=== PATIENT | male | born 1980 | race Two or more races ===

== ENCOUNTER 2021-07-21 14:09 | Outpatient (AMB) | payer OTHER, SELFPAY ==
[2021-07-21 14:46] VITALS: BP 118/75; PULSE 95; RESP 20; TEMP 36.6; BMI 21.3
--- NOTE | 2021-07-21 14:46 | U.OPVIS1 ---
Intake Vital Signs 07/21/21 14:46 Height 1.73 m Weight 63.673 kg BMI 21.3 BP 118/75 Blood Pressure Location Left Upper Arm Position Sitting Respiration 20 Pulse 95 Pulse Source Monitor Temp 97.8 F Temp Source Temporal Artery Scan Intake Visit Reasons: Uro Prostate Ultrasound/covid given to pt Community Education Specialist Required: No Is patient in pain?: No Allergy Allergies ciprofloxacin Allergy (Mild, Verified 07/21/21 14:48) unknown tetracycline Allergy (Unknown, Verified 07/21/21 14:48) Home Meds Medication Reconciliation ibuprofen 600 mg tablet 600 mg PO Q6HR PRN #40 tab 11/15/16 [Rx Confirmed 07/21/21] ipratropium bromide 21 mcg (0.03 %) nasal spray 2 spray INTRANASAL BID #30 ml 08/17/19 [Rx Confirmed 07/21/21] pseudoephedrine HCl 120 mg tablet,extended release (Sudafed 12 Hour) 120 mg PO Q12H PRN #14 tab 08/17/19 [Rx Confirmed 07/21/21] carbamazepine 200 mg tablet (Tegretol) 200 mg PO BID 07/15/21 [History Confirmed 07/21/21] cetirizine 10 mg tablet (Zyrtec) 10 mg PO QDAY PRN 07/15/21 [History Confirmed 07/21/21] montelukast 10 mg tablet 10 mg PO QDAY 07/15/21 [History Confirmed 07/21/21] Office Procedures Uro Prostate US My Supervising Practitioner for this visit is:: Kailash Fernandez Prostate US: Yes Informed consent given: Yes Consent signed: Yes Time out staff in room: Yes IMMEDIATELY PRIOR TO START OF PROCEDURE: ALL MEMBERS of the procedural team are in attendance and actively involved together in the TIME-OUT and verified as applies to the patient:: Correct Patient Identity, Correct Site, Consent Signed and Accurate, Team Agrees on Procedure, Patient has completed pre-procedure preparations, Fleet Enema, Antibiotic prophylaxis, Review of allergies and potential blood loss, Safety Precautions are in place based on patient history, Correct Patient Positioning, Procedural site marked by appropriate provider, Procedural site marking is visible after prep and draping, Relevant images and results are properly labeled and displayed, Reqd blood products, implants, devices and necessary equip available and Specimen container(s) and lab req(s) are available & labeled properly. Time out verified: Yes Time out date: 07/21/21 Time out time: 15:06 Uro Level of Care Nursing/Assessment/Reassessment Patient Status: Established Patient Nursing Assessment/Reassessment: Update REPLACED BY [facility] data in EMR, Vital Signs and Medication Reconciliation Coordination of Care: Comp Pt/Fam Ed for care and Consent,records obtained Miscellaneous Interventions: Phys Asssit w/procedure Established Patient Point Assignment: 80 Procedure IM Injection: No Transrectal Ultrasound: Yes Urology Prostate Ultrasound PSA Density (ng/cc):: 0.33 Prostate Height (mm):: 2.63 Prostate Width (mm):: 4.88 Prostate Length (mm):: 3.81 Prostate volume (cc):: 25.65 Hypoechogenic areas exist which could represent areas of malignancy: No Hyperdense schos are seen suggestive of calculi in the capsule: Yes Seminal vesicles:: Normal Prostate median lobe:: Absent Bladder exam:: Abnormal (Large residual urine) Documentation images were taken: Yes Visit Diagnosis: BPH with urinary obstruction and LUTS start on tamsulosin 0.4 mg p.o. daily side effects are explained to patient thank you follow-up appointment in 3
[2021-07-21 15:40] LABS: Bilirubin,Urine Clinitek Negative (Negative); Blood,Urine Clinitek Trace-intact (Negative); Glucose, Urine Clinitek Negative (Negative); Ketones,Urine Clinitek Negative (Negative); Leukocyte Esterase,Urine Clin Negative (Negative); Nitrite,Urine Clinitek Negative (Negative); PH,Urine Clinitek 6.5 (5.0-7.0); Protein,Urine Clinitek Negative (Neg - Trace); Specific Gravity,Urine Clin 1.015 (1.001-1.030); Urobilinogen,Urine Clinitek 0.2 mg/dL (0.0-1.0)
== END 2021-07-21 15:43 | disposition home or self-care (01) ==
LOC: HODURO 14:09
PROVIDERS: PCP Family Medicine; Visit Provider Urology

== ENCOUNTER → 2024-05-01 | Outpatient (CLI) | payer BC, SELFPAY ==
[2024-05-01 17:40] LABS: Collection Type, Urine Clean Catch; Squamous Epithelial Cell,Urine 0 /hpf (0-5)
[2024-05-01 17:54] LABS: Basophils # (Auto) 0.1 Thou/mm3 (0.0-0.2); Basophils % (Auto) 1 % (0-2.5); Eosinophils # (Auto) 0.1 Thou/mm3 (0.0-0.5); Eosinophils % (Auto) 1 % (0-10); Hemoglobin 13.6 g/dL (13.5-16.0); Immature Granulocytes % (Auto) 0 % (0-0); Immature Granulocytes Auto 0.02 Thou/mm3 (0.00-0.00); Lymphocytes # (Auto) 1.5 Thou/mm3 (1.0-4.8); Lymphocytes % (Auto) 19 % (10-50); Mean Corpuscular Hemoglobin 31.1 pg (25.0-35.0); Mean Corpuscular Volume 92 fL (80-100); Monocytes # (Auto) 0.6 Thou/mm3 (0.0-0.8); Monocytes % (Auto) 8 % (0-12); Neutrophils # (Auto) 5.4 Thou/mm3 (1.8-7.7); Neutrophils % (Auto) 71 % (37-80); Nucleated Red Blood Cell % 0 /100 WBC (0); Platelet Count 298 Thou/mm3 (140-440); RDW Standard Deviation 40.4 fL (35.1-43.9); Red Blood Count 4.37 Miln/mm3 (4.50-5.90); White Blood Count 7.7 Thou/mm3 (3.8-10.6)
[2024-05-01 17:55] LABS: Bilirubin,Urine Negative (Negative); Blood,Urine Negative (Negative); Clarity,Urine Clear (Clear/Hazy); Color,Urine Colorless (Lt Yel-Yel); Glucose, Urine Negative (Negative); Ketones,Urine Negative (Negative); Leukocyte Esterase,Urine Negative (Negative); Nitrite,Urine Negative (Negative); Protein,Urine Negative (Neg - Trace); RBC,Urine 2 /hpf (0-3); Specific Gravity,Urine 1.014 (1.001-1.035); Urobilinogen,Urine Negative mg/dL (0.0-1.0); WBC,Urine < 1 /hpf (0-5)
[2024-05-01 18:06] LABS: Prostate Specific Antigen 0.47 ng/mL (0-4.00)
[2024-05-01 18:15] LABS: Alanine Aminotransferase 22 U/L (10-49); Albumin, Serum 4.9 gm/dL (3.5-5.0); Albumin/Globulin Ratio 2.3 (1.2-2.2); Alkaline Phosphatase 117 U/L (46-116); Anion Gap 4 (7-16); Aspartate Amino Transferase < 8 U/L (0-34); BUN/Creatinine Ratio 14 Ratio (12-20); Bilirubin,Total 0.3 mg/dL (0.3-1.2); Blood Urea Nitrogen 13 mg/dL (9-23); Carbon Dioxide 28.3 mMol/L (20.0-31.0); Chloride 101 mMol/L (98-107); Creatinine (Component) 0.9 mg/dL (0.6-1.3); Globulin 2.1 gm/dL (2.3-3.5); Glucose 91 mg/dL (74-106); Osmolality,Calculated 266 (275-295); Potassium 4.5 mMol/L (3.4-5.1); Sodium 133 mMol/L (136-145); eGFR > 60 See Note
== END | disposition home or self-care (01) ==
LOC: COPL 16:28
PROVIDERS: PCP Family Medicine; Referring Provider Urology; Visit Provider Urology
DX: T07.XXXA Unspecified multiple injuries, initial encounter (principal); M54.2 Cervicalgia; M54.50 Low back pain, unspecified; M54.9 Dorsalgia, unspecified; N40.1 Benign prostatic hyperplasia with lower urinary tract symptoms; X58.XXXA Exposure to other specified factors, initial encounter
CPT/HCPCS: 36415; 80053; 81001; 84153; 85025

== ENCOUNTER → 2024-05-15 | Outpatient (BNVA) | payer BC, SELFPAY | END | disposition home or self-care (01) | PROVIDERS: PCP Family Medicine; Referring Provider Family Medicine; Visit Provider Urology | DX: N40.1 Benign prostatic hyperplasia with lower urinary tract symptoms (principal); N13.8 Other obstructive and reflux uropathy; I86.1 Scrotal varices; F17.210 Nicotine dependence, cigarettes, uncomplicated | CPT/HCPCS: 99212; G0463 ==

== ENCOUNTER 2024-06-27 11:02 | Outpatient (RCR) | payer BC, SELFPAY ==
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
== END 2024-07-20 23:59 | disposition home or self-care (01) ==
LOC: CPTX 11:02
PROVIDERS: PCP Family Medicine; Referring Provider Family Medicine; Visit Provider Family Medicine
DX: M25.512 Pain in left shoulder (principal); S49.92XD Unspecified injury of left shoulder and upper arm, subsequent encounter; V89.2XXD Person injured in unspecified motor-vehicle accident, traffic, subsequent encounter; Z71.6 Tobacco abuse counseling; F17.210 Nicotine dependence, cigarettes, uncomplicated
CPT/HCPCS: 97162

== ENCOUNTER 2025-02-15 14:27 | Outpatient (RCR) | payer BC, SELFPAY ==
--- NOTE | 2025-02-15 15:17 | PTNOTE_ITS ---
PT OP Initial Eval Patient Information Outpatient Physical Therapy Treatment Date: 02/15/25 Visit Reasons: Left shoulder impingement syndrome Medical Diagnosis: s43.432a Treatment Dx #1: Left Shoulder Pain Start of Care: 02/15/25 Smoking Status Smoking Status: Never smoker Initial Assessment Subjective: Pt is a 45 y/o male reports of chronic left shoulder pain (5/10) with popping since Jun 2024. Pt received a cortisone shot last month which helped the pain. Pt mentioned most recent MRI showed type II labrum tear. Pt has limitation with overhead motions, lifting, chores, self care, recreational activities, work duties, and performing ADLs. Objective: Left Shoulder AROM: all motions are WFL with end range pain into external rotation Left Shoulder MMTs: grossly 4-/5 Left Scapula MMTs: grossly 3+/5 Special Test (+) osvaldo (+) active gorman's Assessment: Pt demonstrate left shoulder pain consistent with MRI findings leading to difficulty with ADLs. Pt will benefit from physical therapy to increase ROM, strength, and work on stability. Short Term and Loss Prevention Supervisor Goals 1) Increase left shoulder AROM WNL in 4 wks to be able to perform overhead motions 2) Decrease shoulder pain to 2/10 in 4 wks to be able to perform chores 3) Increase left shoulder MMTs grossly to 4/5 in 4 wks to be able to perform recreational activities 4) Increase left scapula MMTs grossly to 4-/5 in 4 wks to be able to perform work duties 5) Indep with HEP Treatment Plan 1) Manual Therapy 2) Therapeutic Activities 3) Therapeutic Exercises 4) Modalities (ice, heat) Frequency and Duration: 2 x wk for 4 wks Certification Dates: 02/15/25 to 05/18/25 Procedure Charges OP PT Eval Mod Complex 30 minutes: Yes
== END 2025-02-17 23:59 | disposition home or self-care (01) ==
LOC: CPTX 14:27
PROVIDERS: PCP Family Medicine; Referring Provider Orthopaedic Surgery; Visit Provider Orthopaedic Surgery
DX: M25.512 Pain in left shoulder (principal); G89.29 Other chronic pain; S43.432D Superior glenoid labrum lesion of left shoulder, subsequent encounter; X58.XXXD Exposure to other specified factors, subsequent encounter
CPT/HCPCS: 97162

== ENCOUNTER 2025-03-14 15:30 | Outpatient (RCR) | payer BC, SELFPAY ==
--- NOTE | 2025-02-25 16:08 | PT.ODAYNRPT ---
PT Outpatient Daily Note OP Daily Note Outpatient Physical Therapy Treatment Date: 02/25/25 Visit Reasons: left shoulder impingement syndrome Subjective: Pt reports L shoulder is doing ok today, has pain with certain movement and can not lift heavy objects. Objective: Please see flow sheet for ther ex list. Assessment: Pt instructed on AAROM and light isometrics exercises. Verbal cues and demonstration to avoid trunk flexion with isometric exercises. Plan: Continue with poC. Length of Time (minutes) of Treatment: 30 Minutes Procedure Charges Therapeutic Exercise 30 minutes: Yes
--- NOTE | 2025-03-01 16:17 | PT.ODAYNRPT ---
PT Outpatient Daily Note OP Daily Note Outpatient Physical Therapy Treatment Date: 03/01/25 Visit Reasons: left shoulder impingement syndrome Subjective: Pt reports he is trying to use his L shoulder more within pain tolerance. Objective: Please see flow sheet for ther ex list. Assessment: Verbal cues to avoid trunk movement with isometric exercises, pt complied. Plan: Continue with poC. Length of Time (minutes) of Treatment: 30 Minutes Procedure Charges Therapeutic Exercise 30 minutes: Yes
--- NOTE | 2025-03-06 16:22 | PT.ODAYNRPT ---
PT Outpatient Daily Note OP Daily Note Outpatient Physical Therapy Treatment Date: 03/06/25 Visit Reasons: left shoulder impingement syndrome Subjective: Pt reports L shoulder was sore after last session, muscle fatigue present but no pain. Objective: Please see flow sheet for ther ex list. Assessment: Verbal cues to avoid upper trap recruitment during isometric walkout exercises. Plan: Continue with poC. Length of Time (minutes) of Treatment: 30 Minutes Procedure Charges Therapeutic Exercise 30 minutes: Yes
--- NOTE | 2025-03-11 16:39 | PT.ODAYNRPT ---
PT Outpatient Daily Note OP Daily Note Outpatient Physical Therapy Treatment Date: 03/11/25 Visit Reasons: left shoulder impingement syndrome Subjective: Pt reported minimal soreness post last visit. Objective: Please see flow sheet for ther ex list. Assessment: Performed L scapula release, pt tolerated well and reported decrease pain of the scapular border. Plan: Continue with pOC. Length of Time (minutes) of Treatment: 30 Minutes Procedure Charges Therapeutic Exercise 30 minutes: Yes
--- NOTE | 2025-03-14 15:55 | PT.ODAYNRPT ---
PT Outpatient Daily Note OP Daily Note Outpatient Physical Therapy Treatment Date: 03/14/25 Visit Reasons: left shoulder impingement syndrome Subjective: Pt's shoulder is better, however, is concern about his pec and sternum. Pt continues to have pain in the area especially when he lays on the left side. Pt has a follow up appt with surgeon next week. Objective: Please see flow chart for list of ther ex performed Assessment: progressing with shoulder AROM, however, reports of new pain in the pec and sternum region. Pt advised to follow up with PCP for further screening. Pt gave verbal understanding Plan: Continue with PT Length of Time (minutes) of Treatment: 30 Minutes Procedure Charges Therapeutic Exercise 30 minutes: Yes
== END 2025-03-19 23:59 | disposition home or self-care (01) ==
LOC: CPTX 15:30
PROVIDERS: PCP Orthopaedic Surgery; Referring Provider Orthopaedic Surgery; Visit Provider Orthopaedic Surgery
DX: M25.512 Pain in left shoulder (principal); S43.432D Superior glenoid labrum lesion of left shoulder, subsequent encounter; X58.XXXD Exposure to other specified factors, subsequent encounter
CPT/HCPCS: 97110

== ENCOUNTER 2025-04-19 15:30 | Outpatient (RCR) | payer BC, SELFPAY ==
--- NOTE | 2025-03-22 16:01 | PT.ODAYNRPT ---
PT Outpatient Daily Note OP Daily Note Outpatient Physical Therapy Treatment Date: 03/22/25 Visit Reasons: left shoulder impingement syndrome Subjective: Pt's shoulder continues to have pain in the area it's torn. Pt seen surgeon and recommends more PT. Pt does not have a follow up appt with surgeon. Objective: Please see flow chart for list of ther ex perfomed Assessment: progressing patient to more stability and strengthening exercises. Pt fatigue post PT session Plan: Continue with PT Length of Time (minutes) of Treatment: 30 Minutes Procedure Charges Therapeutic Exercise 30 minutes: Yes
--- NOTE | 2025-03-29 15:54 | PT.ODAYNRPT ---
PT Outpatient Daily Note OP Daily Note Outpatient Physical Therapy Treatment Date: 03/29/25 Visit Reasons: left shoulder impingement syndrome Subjective: Pt reports shoulder has been more sore and achy, has been in and out of file cabinets at work all week. Objective: Please see flow sheet for ther ex list. Assessment: Pt had some discomfort with serratus scap clock exercise, resolved post exercise. Plan: Continue with poC. Length of Time (minutes) of Treatment: 30 Minutes Procedure Charges Therapeutic Exercise 30 minutes: Yes
--- NOTE | 2025-04-05 16:12 | PT.ODAYNRPT ---
PT Outpatient Daily Note OP Daily Note Outpatient Physical Therapy Treatment Date: 04/05/25 Visit Reasons: left shoulder impingement syndrome Subjective: Pt reports shoulder has been feeling better, notices less pain. Objective: Please see flow sheet for ther ex list. Assessment: Pt progressing indicated by no pain with thera band interventions. Plan: Continue with pOC. Length of Time (minutes) of Treatment: 30 Minutes Procedure Charges Therapeutic Exercise 30 minutes: Yes
--- NOTE | 2025-04-08 16:01 | PT.ODAYNRPT ---
PT Outpatient Daily Note OP Daily Note Outpatient Physical Therapy Treatment Date: 04/08/25 Visit Reasons: left shoulder impingement syndrome Subjective: Pt's left shoulder pain less intense. Pt mentioned he continues to have sleeping on the left side. 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 Objective: Please see flow chart for list of ther ex performed Assessment: adding more scapula stabilization exercises with good tolerance. Cues to decrease body blade oscillation to improve form. Plan: Continue with PT Length of Time (minutes) of Treatment: 30 Minutes Procedure Charges Therapeutic Exercise 30 minutes: Yes
--- NOTE | 2025-04-12 15:55 | PT.ODS1RPT ---
PT OP Progress/Discharge Note Date of Service: 04/12/25 Progress Note/DC Note Progress Note/Discharge Note: Progress Note Patient Information Visit Reasons: left shoulder impingement syndrome Medical Diagnosis: s43.432a Treatment Dx #1: Left Shoulder Pain Service Continue Service or Discharge: Continue Service Certification Date Certification Dates: 04/05/25 to 07/06/25 Status Subjective: Pt's shoulder feels better, however, still has intermittent pain with certain arm movement. Pt can perform chores, cooking, cleaning, and self care with less pain. Pt still has limitation with lifting, work duties, and recreational activities. Pt does not have to see MD and was given a new MD order for additional PT session. Objective: Left Shoulder AROM: all motions are WNL with pain towards external rotation end range Left Shoulder MMTs: grossly 4-/5 Left Scapula MMTs: grossly 3+/5 Assessment: Pt is progressing with shoulder mobility and stability, however, continue to experience intermittent shoulder pain leading limitation with certain ADLs. Pt will continue to benefit from physical therapy to increase strength, mobility, and stability to beable to resume ADLs; thank you for your referrals Plan: Continue PT/POC per MD's new order 2 x wk for 8 wks Procedure Charges Therapeutic Exercise 30 minutes: Yes
--- NOTE | 2025-04-19 15:54 | PT.ODAYNRPT ---
PT Outpatient Daily Note OP Daily Note Outpatient Physical Therapy Treatment Date: 04/19/25 Visit Reasons: left shoulder impingement syndrome Subjective: Pt reports L shoulder has been feeling better lately. Objective: Please see flow sheet for ther ex list. Assessment: Progression of interventions completed with muscle fatigue but no pain to report. Plan: Continue with pOC. Length of Time (minutes) of Treatment: 30 Minutes Procedure Charges Therapeutic Exercise 30 minutes: Yes
== END 2025-04-19 23:59 | disposition home or self-care (01) ==
LOC: CPTX 15:30
PROVIDERS: PCP Orthopaedic Surgery; Referring Provider Orthopaedic Surgery; Visit Provider Orthopaedic Surgery
DX: M25.512 Pain in left shoulder (principal); G89.29 Other chronic pain; S43.432D Superior glenoid labrum lesion of left shoulder, subsequent encounter; X58.XXXD Exposure to other specified factors, subsequent encounter
CPT/HCPCS: 97110

== ENCOUNTER 2025-05-13 15:30 | Outpatient (RCR) | payer BC, SELFPAY ==
--- NOTE | 2025-04-22 16:13 | PT.ODAYNRPT ---
PT Outpatient Daily Note OP Daily Note Outpatient Physical Therapy Treatment Date: 04/22/25 Visit Reasons: LEFT SHOULDER IMPINGEMENT SYNDROME Subjective: Pt reports progress with L shoulder. Objective: Please see flow sheet for ther ex list. Assessment: Continued focus on restoring functional strength within pt tolerance. Plan: Continue with pOC. Length of Time (minutes) of Treatment: 30 Minutes Procedure Charges Therapeutic Exercise 30 minutes: Yes
--- NOTE | 2025-04-26 16:02 | PT.ODAYNRPT ---
PT Outpatient Daily Note OP Daily Note Outpatient Physical Therapy Treatment Date: 04/26/25 Visit Reasons: LEFT SHOULDER IMPINGEMENT SYNDROME Subjective: Pt reports L shoulder is doing better. Objective: Please see flow sheet for ther ex list. Assessment: Progression of interventions tolerated with muscle fatigue but no pain. Plan: Continue with pOC. Progress as tolerated. Length of Time (minutes) of Treatment: 30 Minutes Procedure Charges Therapeutic Exercise 30 minutes: Yes
--- NOTE | 2025-05-13 15:50 | PT.ODS1RPT ---
PT OP Progress/Discharge Note Date of Service: 05/13/25 Progress Note/DC Note Progress Note/Discharge Note: DC Note Patient Information Visit Reasons: LEFT SHOULDER IMPINGEMENT SYNDROME Medical Diagnosis: s43.432a Treatment Dx #1: Left Shoulder Pain Service Discharge Date: 05/13/25 Status Subjective: Pt's shoulder feels much better since starting physical therapy. Pt still has limitation with certain arm movement or lifting. Pt has been able to resume most ADLs, chores, work duties, and recreational activities. Pt will soon start therapy for his neck. Objective: Left Shoulder AROM: all motions are WNL with pain towards end range external rotation Left Shoulder MMTs: grossly 4/5 Left Scapula MMTs: grossly 3+/5 HBB AROM: Thumb at T8 Assessment: Pt demonstrate functional left shoulder mobility and strength, however, still has occasional pain due to know labrum tear. Pt will no longer benefit from physical therapy due to plateau towards goals. Pt was instructed on HEP last session and educated to continue exercises to maintain overall mobility. Pt performed all exercises safely, thank you for your referrals. Plan: D/C home with HEP and follow up with MD CARNES Procedure Charges Therapeutic Exercise 15 minutes: Yes Self Care/Home Mgmt 15 minutes: Yes
== END 2025-05-19 23:59 | disposition home or self-care (01) ==
LOC: CPTX 15:30
PROVIDERS: PCP Orthopaedic Surgery; Referring Provider Orthopaedic Surgery; Visit Provider Orthopaedic Surgery
DX: M25.512 Pain in left shoulder (principal); G89.29 Other chronic pain; S43.432D Superior glenoid labrum lesion of left shoulder, subsequent encounter; X58.XXXD Exposure to other specified factors, subsequent encounter
CPT/HCPCS: 97110; 97535

== ENCOUNTER 2025-06-10 15:21 | Outpatient (RCR) | payer BC, SELFPAY ==
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
== END 2025-06-19 23:59 | disposition home or self-care (01) ==
LOC: CPTX 15:21
PROVIDERS: PCP Orthopaedic Surgery; Referring Provider Orthopaedic Surgery; Visit Provider Orthopaedic Surgery
DX: M48.02 Spinal stenosis, cervical region (principal); S16.1XXD Strain of muscle, fascia and tendon at neck level, subsequent encounter; V89.2XXD Person injured in unspecified motor-vehicle accident, traffic, subsequent encounter
CPT/HCPCS: 97162